=== PATIENT | male | born 1950 | race Hispanic/Latino ===

== ENCOUNTER 2019-08-03 08:49 | Outpatient (CLI) | payer MEDICARE ==
--- NOTE | 2019-08-03 09:41 | RAD ---
2 VIEW CHEST: Date: 08/03/2019 HISTORY: Cough. No comparison. FINDINGS: The lungs appear clear. No evidence of infiltrate. Heart and mediastinum unremarkable. Osseous struct ures unremarkable with degenerative spine changes noted. IMPRESSION: No acute finding. POS: [id number]
== END 2019-08-03 08:50 | disposition home or self-care (01) ==
LOC: BICRAD 08:49
PROVIDERS: ATTEND Family Medicine
DX: R05 Cough (principal)
CPT/HCPCS: 71046

== ENCOUNTER 2022-11-17 14:17 | Outpatient (CLI) | payer MEDICARE | END 2022-11-17 14:18 | disposition home or self-care (01) | LOC: ULT 14:17 | PROVIDERS: ATTEND Family Medicine | DX: R97.20 Elevated prostate specific antigen [PSA] (principal); K76.0 Fatty (change of) liver, not elsewhere classified | CPT/HCPCS: 76770 ==